=== PATIENT | male | born 1955 | race Caucasian/White ===

== ENCOUNTER → 2024-11-13 08:42 | Outpatient (REF) | payer MEDICARE, BC, SELFPAY | LOC: SDSPAT 08:42 | PROVIDERS: ATTENDING PHYSICIAN Surgery; FAMILY PHYSICIAN Physician Assistant Medical | DX: K42.9 Umbilical hernia without obstruction or gangrene (principal) | CPT/HCPCS: 36415; 93005 ==

== ENCOUNTER 2024-11-30 06:11 | Day surgery (SDC) | payer MEDICARE, BC, SELFPAY ==
[2024-11-13 13:05] VITALS: BMI 26.2
--- NOTE | 2024-11-14 14:55 | PTCARENOTE ---
Abnormal EKG on 11/13/24. Dr. Aranda aware. No intervention needed.
[2024-11-30] VITALS (10 sets, daily range): BP systolic 134–159; BP diastolic 77–106; BMI 26.2
[2024-11-30] MEDS: TYLENOL 1000 MG PO (06:34)
[2024-11-30] MEDS: NORMOSOL-R/PLASMALYTE-A 1000 IV (06:37)
--- NOTE | 2024-11-30 07:12 | W.SUR.PREOP ---
Pre-Operative Surgical Note
-
I have examined this patient prior to the performance of the scheduled procedure.
The patient's condition is unchanged from the time of the current History and
Physical and the patient is able to undergo the scheduled procedure.
--- NOTE | 2024-11-30 07:12 | HP.FOC2 ---
Focused History & Physical
Chief Complaint
HPI:
Chief Complaint: Supraumbilical hernia
HPI / Indication for Planned Procedure:
This is a 69-year-old male with a symptomatic supraumbilical hernia. We will plan for a robotic umbilical hernia repair with mesh
Relevant Past Medical History: Negative
Relevant Social History: Negative
Relevant Family History: Negative
Relevant Past Surgical History: Negative
Review of Systems
Review of Pertinent Systems: All Systems Negative
Medication
See Medication form for detailed medications: Yes
Medication List (including Herbals & OTC):
atorvastatin 20 mg tablet 20 mg PO QPM 11/21/24
esomeprazole magnesium 40 mg capsule,delayed release (Nexium) 40 mg PO QPM 11/21/24
famotidine 20 mg tablet (Pepcid AC) 20 mg PO DAILY PRN reflux 11/21/24
levothyroxine 112 mcg tablet (Synthroid) 112 mcg PO DAILY 11/21/24
Medications Reviewed: Yes
Allergies and Reactions
Patient has Allergies: No
Noted Allergies and Reactions:
Allergy/AdvReac Type Severity Reaction Status Date / Time
No Known Allergies Allergy Verified 11/30/24 06:26
Pertinent Physical Exam
All Other Systems: Negative
Head/Neck: Normal
Diagnosis / Assessment
This is a 69-year-old male with a symptomatic supraumbilical hernia. We will plan for a robotic umbilical hernia repair with mesh
Plan / Procedure
This is a 69-year-old male with a symptomatic supraumbilical hernia. We will plan for a robotic umbilical hernia repair with mesh
Anesthesia/Sedation to be done by Anesthesia Provider: Yes
--- NOTE | 2024-11-30 08:59 | W.IMMPOSTOP ---
Surgical Immed Post Op Note
-
Primary Surgeon: Blake Young MD
Assisting Surgeon: Sanchez Hopper MD (PGY 1)
Pre-op Diagnosis: Supraumbilical hernia
Post-op Diagnosis: Same
Procedure Performed: Robotic umbilical hernia repair with mesh (RACQUEL approach)
Anesthesia Type: General
Specimen / Cultures: None
Estimated Blood Loss: 7 cc
Complications: None
Operative Findings: Small 0.8 cm umbilical defect along with a 1.2 cm supraumbilical defect (about 2 cm apart) containing preperitoneal and falciform fat respectively. Both closed in the transverse direction using 0 V-Loc 180 suture. A
preperitoneal flap was developed and then a 12 cm long by 10 cm wide Bard soft mesh was used to reinforce the repair. The flap was closed with a running 2-0 barbed Monocryl suture. 1 g of TXA given intraoperatively.
--- NOTE | 2024-11-30 09:03 | OR.RPT ---
Operative Report
Operative Report
Patient Name: Diaz Sweet
: 1955
Date of Operation: 11/30/2024
Preoperative Diagnosis: Supraumbilical hernia
Postoperative Diagnosis: Same
Procedure(s):
Robotic umbilical hernia repair with mesh (RACQUEL approach)
Surgeon(s):
Dr. Young
Flower Planter(s):
Sanchez Hopper MD (PGY 1)
WALDO Ramires
Anesthesia: General
Estimated Blood Loss: 7 cc
Urine Output: None
Drains/Lines/Implants:
12 x 10 cm Bard soft mesh
Specimens:
None
HPI/Surgical Indications:
This is a 69-year-old male who was seen in my office for a symptomatic supra-umbilical bulge and diagnosed with a reducible umbilical hernia. Risks/Benefits/Alternatives were discussed at length, and the patient agreed to proceed with surgery.
Operative Findings: Small 0.8 cm umbilical defect along with a 1.2 cm supraumbilical defect (about 2 cm apart) containing preperitoneal and falciform fat respectively. Both closed in the transverse direction using 0 V-Loc 180 suture. A
preperitoneal flap was developed and then a 12 cm long by 10 cm wide Bard soft mesh was used to reinforce the repair. The flap was closed with a running 2-0 barbed Monocryl suture. 1 g of TXA given intraoperatively.
Procedure Description:
The patient was brought to the Operating Room and placed in the supine position with the arms tucked. IV antibiotics were infused and Venodyne stockings placed. Following uneventful induction of general endotracheal anesthesia, an orogastric tube
were placed. The abdomen was prepped and draped in the usual sterile fashion. The abdomen was entered using a Veress technique which required 1 pass, pneumoperitoneum to 15 mmHg was obtained without difficulty. An 8mm trochar was passed through
the abdominal wall roughly 20 cm laterally from the defect in the left upper quadrant, we then confirmed that no inadvertent injury was made while passing the trocar or Veress needle. We then placed two additional 8 mm ports in the left lower
quadrant. Bilateral tap blocks were performed. The robot was docked. We then introduced our prograsper through the inferior/left hand port and a monopolar scissors through the superior port. We then turned our attention to the hernia which had
no intra-abdominal contents. We then began taking a flap down roughly 5 cm away from the defect and roughly 12 cm in length taking care to stay in the pretransversalis plane. The preperitoneal fat was taken down off of the posterior rectus sheath
both superior and inferior to the hernia defects such that we were able to get our 'volcano signs'. We then worked on reducing the defects which contained preperitoneal fat in the umbilicus and falciform fat in the supraumbilical hernia and
continued our dissection out laterally for an additional 6 cm laterally. Once our flap was created we introduced a ruler and a 0 V-Loc 180. The main hernia defect measured 1.2 cm, while the umbilical defect measured just under a centimeter. These
defects were roughly 2 cm apart. The pocket measured 12 x 10 cm. I had my general assistant cut a 12 cm long by 10 cm wide piece of Bard soft mesh marked with 0 Vicryl suture at the center, as I closed the defects in the transverse direction with a 0
V-Loc 180 suture. The mesh was then sutured to the posterior rectus sheath in 4 quadrants with 2-0 vircyls to ensure good apposition. A 2-0 Monocryl was introduced which was used to close our flap. All sutures were removed. The robot was undocked.
The ports were removed under direct visualization and pneumoperitoneum was evacuated. The port sites were closed with 4-0 Monocryl followed by Dermabond. Counts were correct and overall, the patient tolerated the procedure well and was taken to the
Recovery Room postoperatively in stable condition.
I was the attending physician and performed the procedure with assistance from the resident and MEDICAL IMAGING TECH above. I was present for all portions of the case except for skin closure.
Blake Young MD
[2024-11-30] MEDS: ROXICODONE 5 MG PO (10:08)
== END 2024-11-30 10:45 | disposition home or self-care (01) ==
LOC: SDS 06:11
PROVIDERS: ATTENDING PHYSICIAN Surgery
DX: K42.9 Umbilical hernia without obstruction or gangrene (principal)
CPT/HCPCS: 49591; C1781